=== PATIENT | female | born 1975 | race Two or more races ===

== ENCOUNTER 2020-03-12 13:34 | Inpatient (IN) | payer SELFPAY ==
[~2020-03-12] VITALS: Ht 152.4 cm; Wt 56.3 kg
[2020-03-12 14:32] LABS: Basophils # (auto) 0.1 10 ^3/uL (0-0.2); Eosinophils # (auto) 0.1 10 ^3/uL (0-0.8); Eosinophils % (auto) 1.5 % (0.0-7.0); Lymphocytes # (auto) 1.7 10 ^3/uL (0.4-5.4); Monocytes # (auto) 0.5 10 ^3/uL (0-1.3); Neutrophils # (auto) 3.6 10 ^3/uL (1.6-8.6)
[2020-03-12 14:33] LABS: Basophils % (auto) 1.6 % (0.0-2.0); Hematocrit 19.3 % (36.0-46.0); Lymphocytes % (auto) 28.6 % (10.0-50.0); Mean Corpuscular Hgb Conc. 26.9 g/dL (32.0-36.0); Mean Corpuscular Volume 59.4 fL (80.0-100.0); Monocytes % (auto) 8.5 % (0.0-12.0); Neutrophils % (auto) 59.8 % (37.0-80.0); Nucleated Red Blood Cells % 0.2 %; Platelet Count (auto) 408 10^3/uL (140-450); Red Blood Cells 3.25 10^6/uL (4.0-5.20)
[2020-03-12 14:43] LABS: Hemoglobin 5.2 g/dL (12.2-16.2)
[2020-03-12 14:51] LABS: Albumin 3.9 g/dL (3.4-5.0); Anion Gap 4 (5-15); Blood Urea Nitrogen 9 mg/dL (7-18); Calcium 8.3 mg/dL (8.5-10.1); Carbon Dioxide 25 mmol/L (21-32); Chloride 111 mmol/L (98-107); Magnesium 2.6 mg/dL (1.6-2.6); Potassium 3.7 mmol/L (3.5-5.1); Sodium 140 mmol/L (136-145)
[2020-03-12 15:00] LABS: Alanine Aminotransferase 11 U/L (13-56); Alkaline Phosphatase 72 U/L (45-117); Aspartate Aminotransferase 16 U/L (15-37); BUN/Creatinine Ratio 11.5; Bilirubin, Total 0.6 mg/dL (0.2-1.0); GFR African American 102 mL/min; GFR Non-African American 85 mL/min; Glucose 86 mg/dL (74-106); Total Protein 8.3 g/dL (6.4-8.2)
[2020-03-12] MEDS ORDERED: AZITHROMYCIN 500MG/ 250ML 250 ML IV ONE (15:30)
[2020-03-12] MEDS ORDERED: cefTRIAXone 1GM/50ML D5W 50 ML IV ONE (15:30)
[2020-03-12] MEDS ORDERED: MORPHINE SULF INJ 2 MG/ML SYRINGE 1ML IV PRN (15:45)
[2020-03-12] MEDS ORDERED: NITROGLYCERIN 0.4 MG SL TAB SL PRN (15:45)
[2020-03-12 16:06] LABS: CRP High Sensitivity 0.35 mg/dL (< 0.3)
[2020-03-12] MEDS: SODIUM CHLORIDE 0.9% 1,000 ML IV SCH (18:24)
[2020-03-12] MEDS ORDERED: ACETAMINOPHEN 500 MG TAB PO PRN (18:30)
[2020-03-12] MEDS ORDERED: TEMAZEPAM 15 MG CAP PO PRN (18:30)
[2020-03-12] MEDS ORDERED: ALBUTEROL SULF 2.5 MG/0.5ML(0.5%) NEB SOLN NEB PRN (18:30)
[2020-03-12] MEDS ORDERED: LACTULOSE 20Gm/30ML SOLN PO PRN (18:30)
[2020-03-12] MEDS ORDERED: PROMETHAZINE HCL 25 MG/ML 1ML IV PRN (18:30)
[2020-03-12] MEDS ORDERED: traMADol HCL 50 MG TAB PO PRN (18:30)
[2020-03-12] MEDS: PANTOPRAZOLE 40 MG TAB PO SCH (19:08)
[2020-03-12] MEDS ORDERED: ACETAMINOPHEN 325 MG TAB PO ONE (21:00)
[2020-03-12] MEDS ORDERED: diphenhdrAMINE HCL 25 MG CAP PO ONE (21:00)
[2020-03-12 21:45] VITALS: BP 146/61
[2020-03-12] MEDS ORDERED: OSELTAMIVIR 75 MG CAP PO ONE (23:30)
[2020-03-13 01:25] LABS: Hematocrit 22.4 % (36.0-46.0)
[2020-03-13 01:37] LABS: Hemoglobin 6.4 g/dL (12.2-16.2)
[2020-03-13 02:17] VITALS: BP 139/65
[2020-03-13] MEDS: SODIUM CHLORIDE 0.9% 1,000 ML IV SCH ×3 (02:42→14:56)
[2020-03-13] MEDS ORDERED: NOREPINEPHRINE 8 MG/250ML KIT 250 ML IV SCH (03:00)
[2020-03-13 08:14] LABS: Basophils # (auto) 0.1 10 ^3/uL (0-0.2); Eosinophils # (auto) 0.1 10 ^3/uL (0-0.8); Eosinophils % (auto) 1.7 % (0.0-7.0); Lymphocytes # (auto) 1.6 10 ^3/uL (0.4-5.4); Neutrophils # (auto) 4.1 10 ^3/uL (1.6-8.6); White Blood Cell 6.5 10^3/uL (4.4-10.8)
[2020-03-13 08:16] LABS: Basophils % (auto) 1.2 % (0.0-2.0); Hematocrit 26.2 % (36.0-46.0); Hemoglobin 7.5 g/dL (12.2-16.2); Lymphocytes % (auto) 25.4 % (10.0-50.0); Mean Corpuscular Hemoglobin 20.1 pg (28.0-32.0); Mean Corpuscular Hgb Conc. 28.8 g/dL (32.0-36.0); Mean Corpuscular Volume 69.8 fL (80.0-100.0); Monocytes # (auto) 0.6 10 ^3/uL (0-1.3); Monocytes % (auto) 8.7 % (0.0-12.0); Nucleated Red Blood Cells % 0.1 %; Platelet Count (auto) 324 10^3/uL (140-450); Red Blood Cells 3.75 10^6/uL (4.0-5.20)
[2020-03-13 08:17] LABS: Red Cell Distribution Width 33.6 % (11.8-14.3)
[2020-03-13] MEDS: cefTRIAXone 1GM/50ML D5W 50 ML IV SCH (09:17)
[2020-03-13] MEDS: OSELTAMIVIR 75 MG CAP PO SCH (09:26)
[2020-03-13] MEDS: PANTOPRAZOLE 40 MG TAB PO SCH ×2 (09:26→14:55)
[2020-03-13] MEDS: AZITHROMYCIN 500MG/ 250ML 250 ML IV SCH (10:05)
[2020-03-13] MEDS ORDERED: NITROGLYCERIN 0.4 MG SL TAB SL PRN (12:00)
[2020-03-13] MEDS ORDERED: MORPHINE SULF INJ 2 MG/ML SYRINGE 1ML IV PRN (12:00)
[2020-03-13] MEDS: FERROUS SULFATE 325 MG TAB PO SCH (18:09)
[2020-03-13 18:59] LABS: Urine WBC None Seen /hpf (0 - 5)
[2020-03-13 19:15] LABS: Urine Bacteria NONE SEEN /hpf (None Seen); Urine Blood 1+ /uL (Negative); Urine Mucus FEW (None Seen); Urine Specific Gravity 1.009 (1.001-1.035)
[2020-03-13 21:50] VITALS: BP 131/72
[2020-03-13 22:15] VITALS: BP 131/72
[2020-03-14] MEDS: SODIUM CHLORIDE 0.9% 1,000 ML IV SCH ×2 (04:56→11:41)
[2020-03-14 04:57] VITALS: BP 111/66
[2020-03-14 05:00] VITALS: BP 118/64
[2020-03-14 09:00] VITALS: BP 116/66
[2020-03-14] MEDS: PANTOPRAZOLE 40 MG TAB PO SCH ×2 (09:37→22:49)
[2020-03-14] MEDS: FERROUS SULFATE 325 MG TAB PO SCH ×2 (09:37→17:36)
[2020-03-14] MEDS: OSELTAMIVIR 75 MG CAP PO SCH (09:38)
[2020-03-14] MEDS: cefTRIAXone 1GM/50ML D5W 50 ML IV SCH (09:38)
[2020-03-14] MEDS: AZITHROMYCIN 500MG/ 250ML 250 ML IV SCH (09:38)
[2020-03-14 11:14] LABS: Basophils # (auto) 0.1 10 ^3/uL (0-0.2); Hemoglobin 8.1 g/dL (12.2-16.2); Nucleated Red Blood Cells % 0.1 %
[2020-03-14 11:17] LABS: Basophils % (auto) 1.3 % (0.0-2.0); Eosinophils # (auto) 0.2 10 ^3/uL (0-0.8); Eosinophils % (auto) 2.7 % (0.0-7.0); Hematocrit 27.5 % (36.0-46.0); Mean Corpuscular Hemoglobin 20.4 pg (28.0-32.0); Mean Corpuscular Hgb Conc. 29.5 g/dL (32.0-36.0); Mean Corpuscular Volume 69.3 fL (80.0-100.0); Monocytes # (auto) 0.5 10 ^3/uL (0-1.3); Monocytes % (auto) 7.2 % (0.0-12.0); Neutrophils % (auto) 73.8 % (37.0-80.0); Platelet Count (auto) 371 10^3/uL (140-450); Red Blood Cells 3.97 10^6/uL (4.0-5.20); White Blood Cell 6.8 10^3/uL (4.4-10.8)
[2020-03-14 11:26] LABS: Red Cell Distribution Width 33.8 % (11.8-14.3)
[2020-03-14 13:00] VITALS: BP 112/65
[2020-03-14 17:00] VITALS: BP 114/65
[2020-03-14 22:00] VITALS: BP 111/63
[2020-03-15] MEDS: SODIUM CHLORIDE 0.9% 1,000 ML IV SCH (03:45)
[2020-03-15 05:00] VITALS: BP 112/64
[2020-03-15 09:00] VITALS: BP 114/72
[2020-03-15] MEDS: OSELTAMIVIR 75 MG CAP PO SCH (09:28)
[2020-03-15] MEDS: PANTOPRAZOLE 40 MG TAB PO SCH (09:28)
[2020-03-15] MEDS: FERROUS SULFATE 325 MG TAB PO SCH (09:28)
[2020-03-15] MEDS: cefTRIAXone 1GM/50ML D5W 50 ML IV SCH (09:29)
[2020-03-15] MEDS ORDERED: AZITHROMYCIN 250 MG TAB PO SCH (10:00)
[2020-03-15] MEDS ORDERED: OSEL75CA11 PO (10:50)
[2020-03-15] MEDS ORDERED: FER325T PO (10:50)
[2020-03-15] MEDS ORDERED: LEVO750T2 PO (10:50)
[2020-03-15 12:34] LABS: Hematocrit 29.7 % (36.0-46.0); Hemoglobin 8.8 g/dL (12.2-16.2)
[2020-03-15 13:14] VITALS: BP 123/73
[2020-03-15 13:45] VITALS: BP 123/73
== END 2020-03-15 14:48 | disposition home or self-care (01) | DRG 760 ==
LOC: ER 13:34 → TELE 13:35 → TELE-EAST 03-13 21:33
PROVIDERS: ADMIT Internal Medicine; ATTEND Internal Medicine
PROC: 30233N1 Transfusion of Nonautologous Red Blood Cells into Peripheral Vein, Percutaneous Approach (ICD-10-PCS; principal; 2020-03-12)
DX: N92.1 Excessive and frequent menstruation with irregular cycle (principal); J18.9 Pneumonia, unspecified organism; J98.11 Atelectasis; D64.9 Anemia, unspecified; Z20.828 Contact with and (suspected) exposure to other viral communicable diseases; D25.9 Leiomyoma of uterus, unspecified; N83.209 Unspecified ovarian cyst, unspecified side; J10.1 Influenza due to other identified influenza virus with other respiratory manifestations
CPT/HCPCS: 36415; 71045; 71046; 76856; 80053; 81001; 82270; 82378; 82728; 83605; 83615; 83735; 84443; 84484; 85014; 85018; 85025; 85045; 85652; 86141; 86850; 86900; 86901; 86920; 87040; 87804; 87880; 93005; G0378; J0696